=== PATIENT | female | born 1985 | race African-American/Black ===

== ENCOUNTER 2016-08-19 12:49 | Emergency (ER) | payer OTHER ==
[~2016-08-19] VITALS: Ht 152.4 cm; Wt 107.5 kg
[~2016-08-19 12:49] MED LIST: APAP500; CORTISPORIN OTI10 M2 OT; IBUPROFEN 800800 M1 PO; NOHOMEMEDICATIONS; NORCO 5-325 TA1 EACH PO; PHENERGAN 25 MG25 M1 PO
[2016-08-19 14:23] LABS: CALCIUM 8.8 mg/dL (8.5-10.1); CREATININE 0.9 mg/dL (0.6-1.3); POTASSIUM 3.5 mmol/L (3.5-5.1)
[2016-08-19] MEDS ORDERED: VALIUM5 MG PO (14:38)
[2016-08-19 14:54] VITALS: BP 134/91
== END 2016-08-19 14:56 | disposition home or self-care (01) ==
LOC: ER 12:49
PROVIDERS: Physician Assistant
DX: R25.1 Tremor, unspecified (principal); F17.210 Nicotine dependence, cigarettes, uncomplicated; Z88.5 Allergy status to narcotic agent

== ENCOUNTER 2016-08-26 16:50 | Emergency (ER) | payer OTHER ==
[~2016-08-26] VITALS: Ht 152.4 cm; Wt 107.5 kg
[2016-08-26 16:50] VITALS: BP 143/108
[~2016-08-26 16:50] MED LIST changes: +VALIUM5 MG PO
[2016-08-26] MEDS ORDERED: FLEXERIL PO (17:18)
[2016-08-26] MEDS ORDERED: MEDROLDOSEPACK PO (17:18)
[2016-08-26] MEDS ORDERED: IBUPROFEN 600600 M1 PO (17:19)
== END 2016-08-26 17:37 | disposition home or self-care (01) ==
LOC: ER 16:50
DX: S16.1XXA Strain of muscle, fascia and tendon at neck level, initial encounter (principal); M54.12 Radiculopathy, cervical region; F17.210 Nicotine dependence, cigarettes, uncomplicated; Z76.0 Encounter for issue of repeat prescription; Z88.5 Allergy status to narcotic agent; V89.2XXA Person injured in unspecified motor-vehicle accident, traffic, initial encounter; Y93.9 Activity, unspecified; Y92.9 Unspecified place or not applicable; Y99.9 Unspecified external cause status

== ENCOUNTER 2017-12-09 20:36 | Emergency (ER) | payer OTHER ==
[~2017-12-09] VITALS: Ht 152.4 cm; Wt 111.6 kg
[~2017-12-09 20:36] MED LIST changes: +FLEXERIL PO; +IBUPROFEN 600600 M1 PO; +MEDROLDOSEPACK PO
[2017-12-09] MEDS ORDERED: ADIPEX-P37.5 MG PO (20:55)
[2017-12-09] MEDS ORDERED: NAPROSYN500 MG PO (21:33)
[2017-12-09 21:56] VITALS: BP 139/93
== END 2017-12-09 22:00 | disposition home or self-care (01) ==
LOC: ER 20:36
DX: S93.601A Unspecified sprain of right foot, initial encounter (principal); F17.210 Nicotine dependence, cigarettes, uncomplicated; Z88.5 Allergy status to narcotic agent; X58.XXXA Exposure to other specified factors, initial encounter; Y93.89 Activity, other specified; Y92.89 Other specified places as the place of occurrence of the external cause; Y99.8 Other external cause status

== ENCOUNTER 2018-01-11 14:58 | Emergency (ER) | payer OTHER ==
[~2018-01-11] VITALS: Ht 152.4 cm; Wt 111.6 kg
[~2018-01-11 14:58] MED LIST changes: +ADIPEX-P37.5 MG PO; +NAPROSYN500 MG PO
[2018-01-11 16:07] LABS: ABSOLUTE NEUTROPHILS 3.4 thou/uL (1.4-8.2); BASOPHILS 0.8 % (0.0-2.0); EOSINOPHILS 4.4 % (0.0-3.0); HEMATOCRIT 39.6 % (37.0-47.0); HEMOGLOBIN 13.5 gm/dL (12.0-15.0); LYMPHOCYTES 32.3 % (24.0-44.0); MCHC 34.2 g/dL (28.0-37.0); MCV 90.6 fL (80.0-100.0); MONOCYTES 5.1 % (1.0-8.0); PLATELET COUNT 287 thou/uL (150-400); POLYS 57.4 % (36.0-66.0); RBC 4.37 mil/uL (4.20-5.00); RDW 14.5 % (10.5-14.5)
[2018-01-11 16:09] VITALS: BP 135/94
[2018-01-11 16:15] LABS: CALCIUM 9.4 mg/dL (8.5-10.1); CREATININE 0.9 mg/dL (0.6-1.0); POTASSIUM 3.7 mmol/L (3.5-5.1)
== END 2018-01-11 16:39 | disposition home or self-care (01) ==
LOC: ER 14:58
PROVIDERS: Emergency Medicine
DX: R60.0 Localized edema (principal); F17.210 Nicotine dependence, cigarettes, uncomplicated; Z88.5 Allergy status to narcotic agent

== ENCOUNTER 2018-12-29 11:18 | Emergency (ER) | payer OTHER ==
[~2018-12-29] VITALS: Ht 152.4 cm; Wt 102.1 kg
[2018-12-29 11:34] LABS: URINE BILIRUBIN NEGATIVE (Negative); URINE BLOOD NEGATIVE (Negative); URINE CLARITY CLEAR; URINE COLOR YELLOW; URINE GLUCOSE-RANDOM* NEGATIVE (Negative); URINE KETONES NEGATIVE (Negative); URINE LEUKOCYTES-REFLEX NEGATIVE (Negative); URINE NITRITE-REFLEX NEGATIVE (Negative); URINE PROTEIN (DIPSTICK) NEGATIVE (Negative); URINE SPECIFIC GRAVITY >= 1.030 (1.005-1.035); URINE UROBILINOGEN 0.2 E.U./dl (0.2-1.0)
[2018-12-29 12:50] LABS: ABSOLUTE NEUTROPHILS 1.9 thou/uL (1.4-8.2); BASOPHILS 0.5 % (0.0-2.0); EOSINOPHILS 6.6 % (0.0-3.0); HEMATOCRIT 37.3 % (37.0-47.0); HEMOGLOBIN 12.6 gm/dL (12.0-15.0); LYMPHOCYTES 37.3 % (24.0-44.0); MCH 29.8 pg (26.0-34.0); MCHC 33.7 g/dL (28.0-37.0); MCV 88.6 fL (80.0-100.0); MONOCYTES 8.6 % (1.0-8.0); PLATELET COUNT 294 thou/uL (150-400); RBC 4.21 mil/uL (4.20-5.00); RDW 15.9 % (10.5-14.5); WBC 4.1 thou/uL (4.0-11.0)
[2018-12-29 13:02] LABS: CALCIUM 9.2 mg/dL (8.5-10.1); CREATININE 0.8 mg/dL (0.6-1.0); POTASSIUM 3.8 mmol/L (3.5-5.1)
[2018-12-29 13:09] LABS: ALBUMIN 3.3 g/dL (3.4-5.0); TOTAL BILIRUBIN 0.1 mg/dL (<0.1-1.0); TOTAL PROTEIN 7.2 g/dL (6.4-8.2)
[2018-12-29] MEDS ORDERED: CARAFATE 1 GM TA1 G1 PO (13:17)
[2018-12-29] MEDS ORDERED: OMEPRAZOLE 20 M20 M1 PO (13:17)
[2018-12-29 13:32] VITALS: BP 119/79
--- NOTE | 2018-12-31 08:38 | EKG ---
[address] [place] [address] ELECTROCARDIOGRAM REPORT Name: VERONICA MILLS Room #: DEP [facility]#: [id number] ������������������ Admission: 12/29/18 ������������������ Attend Phys: Discharge: 12/29/18 ������������������ Date of : 83 Report #: [id number] ����������������������������������������������������������������� [id number] THIS REPORT FOR: //name// [facility] ED Test Date: 2018-12-29 Test Time: 11:54:53 Pat Name: VERONICA MILLS Department: Room: Gender: F Survey Worker: JADA : 1985 Requested By: Chetan Trinidad Order Number: [id number] MD: Michael Kimball Measurements Intervals [place] Rate: 57 P: 23 TN: 163 QRS: 19 QRSD: 86 T: 13 QT: 382 QTc: 372 Interpretive Statements Sinus rhythm Low voltage, precordial leads No previous ECG available for comparison Electronically Signed On 12-31-2018 8:38:18 CDT by Michael Kimball [email or web address] ��������������������������������������������� <ELECTRONICALLY SIGNED> ���������������������������������������� By: Michael Kimball MD ��������������������������������������������� 12/31/18 0838 1154 1154 MD KIESHA Xiong
== END 2018-12-29 13:33 | disposition home or self-care (01) ==
LOC: ER 11:18
PROVIDERS: Physician Assistant
DX: K29.70 Gastritis, unspecified, without bleeding (principal); F17.210 Nicotine dependence, cigarettes, uncomplicated; Z98.890 Other specified postprocedural states; Z88.5 Allergy status to narcotic agent

== ENCOUNTER 2019-08-26 18:53 | Emergency (ER) | payer OTHER ==
[~2019-08-26] VITALS: Ht 152.4 cm; Wt 113.4 kg
[~2019-08-26 18:53] MED LIST changes: +CARAFATE 1 GM TA1 G1 PO; +OMEPRAZOLE 20 M20 M1 PO
[2019-08-26 19:30] LABS: URINE BILIRUBIN NEGATIVE (Negative); URINE BLOOD 2+ (Negative); URINE CLARITY CLEAR; URINE COLOR YELLOW; URINE GLUCOSE-RANDOM* NEGATIVE (Negative); URINE KETONES 2+ (Negative); URINE LEUKOCYTES-REFLEX NEGATIVE (Negative); URINE NITRITE-REFLEX NEGATIVE (Negative); URINE PROTEIN (DIPSTICK) NEGATIVE (Negative)
[2019-08-26 19:56] LABS: BACTERIA-REFLEX 1-9 Few /HPF (None Seen); CASTS None Seen /LPF (None Seen); CRYSTALS None Seen /LPF (None Seen); SQUAMOUS 0-3 Few /LPF (0-3); URINE RBC 0-2 Rare /HPF (0-2); URINE WBC-REFLEX None Seen /HPF (0-5)
[2019-08-26 19:57] LABS: ABSOLUTE NEUTROPHILS 2.3 thou/uL (1.4-8.2); EOSINOPHILS 1.7 % (0.0-3.0); HEMATOCRIT 40.9 % (37.0-47.0); HEMOGLOBIN 13.5 gm/dL (12.0-15.0); LYMPHOCYTES 33.8 % (24.0-44.0); MCH 30.2 pg (26.0-34.0); MCHC 33.1 g/dL (28.0-37.0); MCV 91.2 fL (80.0-100.0); MONOCYTES 9.6 % (1.0-8.0); PLATELET COUNT 262 thou/uL (150-400); POLYS 53.9 % (36.0-66.0); RBC 4.49 mil/uL (4.20-5.00); RDW 15.3 % (10.5-14.5); WBC 4.3 thou/uL (4.0-11.0)
[2019-08-26 19:59] LABS: CALCIUM 8.8 mg/dL (8.5-10.1); CREATININE 0.9 mg/dL (0.6-1.0); POTASSIUM 3.6 mmol/L (3.5-5.1)
[2019-08-26] MEDS ORDERED: ONDANSETRON HCL4 M2 PO (20:37)
[2019-08-26] MEDS ORDERED: OMEPRAZOLE 20 M20 M1 PO (20:37)
[2019-08-26 20:54] VITALS: BP 118/89
== END 2019-08-26 20:56 | disposition home or self-care (01) ==
LOC: ER 18:53
PROVIDERS: Nurse Practitioner
DX: K52.9 Noninfective gastroenteritis and colitis, unspecified (principal); R11.2 Nausea with vomiting, unspecified; F17.210 Nicotine dependence, cigarettes, uncomplicated; Z88.6 Allergy status to analgesic agent

== ENCOUNTER 2019-09-01 16:13 | Emergency (ER) | payer OTHER ==
[~2019-09-01] VITALS: Ht 152.4 cm; Wt 113.4 kg
[~2019-09-01 16:13] MED LIST changes: +ONDANSETRON HCL4 M2 PO
[2019-09-01] MEDS ORDERED: REGLAN 5 MG TAB5 MG PO (18:00)
[2019-09-01] MEDS ORDERED: GUAIFEN-CODEINE10 ML PO (18:00)
[2019-09-01 18:24] VITALS: BP 126/82
== END 2019-09-01 18:25 | disposition home or self-care (01) ==
LOC: ER 16:13
DX: J32.9 Chronic sinusitis, unspecified (principal); F17.210 Nicotine dependence, cigarettes, uncomplicated

== ENCOUNTER 2020-07-03 20:50 | Emergency (ER) | payer OTHER ==
[~2020-07-03] VITALS: Ht 152.4 cm; Wt 117.5 kg
[~2020-07-03 20:50] MED LIST changes: +GUAIFEN-CODEINE10 ML PO; +REGLAN 5 MG TAB5 MG PO
[2020-07-03 21:27] LABS: ABSOLUTE NEUTROPHILS 4.6 thou/uL (1.4-8.2); BASOPHILS 0.8 % (0.0-2.0); EOSINOPHILS 5.1 % (0.0-3.0); HEMATOCRIT 36.6 % (37.0-47.0); LYMPHOCYTES 31.4 % (24.0-44.0); MCH 30.1 pg (26.0-34.0); MCHC 32.8 g/dL (28.0-37.0); MCV 91.5 fL (80.0-100.0); MONOCYTES 7.7 % (1.0-8.0); PLATELET COUNT 306 thou/uL (150-400); RDW 14.8 % (10.5-14.5); WBC 8.4 thou/uL (4.0-11.0)
[2020-07-03] MEDS ORDERED: NORETHINDRONE0.35 MG PO (21:43)
[2020-07-03 23:27] VITALS: BP 159/106
== END 2020-07-03 23:25 | disposition home or self-care (01) ==
LOC: ER 20:50
PROVIDERS: Emergency Medicine
DX: N93.8 Other specified abnormal uterine and vaginal bleeding (principal); E66.9 Obesity, unspecified; F17.210 Nicotine dependence, cigarettes, uncomplicated; Z98.51 Tubal ligation status; Z90.49 Acquired absence of other specified parts of digestive tract; Z98.890 Other specified postprocedural states; Z79.899 Other long term (current) drug therapy; Z88.5 Allergy status to narcotic agent; Z68.43 Body mass index [BMI] 50.0-59.9, adult